=== PATIENT | female | born 1940 | race Caucasian/White ===

== ENCOUNTER 2022-02-28 09:35 | Outpatient (CLI) | payer MEDICARE ==
[2022-02-28] MEDS ORDERED: Iopamidol 300 61% 100 ML VIAL FS ONE (12:16)
== END 2022-02-28 09:36 | disposition home or self-care (01) ==
LOC: CSHCT 09:35
PROVIDERS: ATTEND Family Medicine
DX: N39.0 Urinary tract infection, site not specified (principal); K76.9 Liver disease, unspecified; Z90.710 Acquired absence of both cervix and uterus; N28.9 Disorder of kidney and ureter, unspecified; I70.90 Unspecified atherosclerosis
CPT/HCPCS: 74177

== ENCOUNTER 2023-06-29 12:25 | Outpatient (CLI) | payer MEDICARE ==
[~2023-06-29 12:25] MED LIST: Magnevist 469MG/ML 20 ML VIAL ONE
== END 2023-06-29 12:26 | disposition home or self-care (01) ==
LOC: CSHMRI 12:25
PROVIDERS: ATTEND Otolaryngology Plastic Surgery within the Head & Neck
DX: J32.1 Chronic frontal sinusitis (principal); Q34.8 Other specified congenital malformations of respiratory system; H05.20 Unspecified exophthalmos
CPT/HCPCS: 70553; 82565

== ENCOUNTER 2024-08-12 13:18 | Outpatient (CLI) | payer MEDICARE | END 2024-08-12 13:19 | disposition home or self-care (01) | LOC: CSHULT 13:18 | PROVIDERS: ATTEND Family Medicine | DX: R01.1 Cardiac murmur, unspecified (principal); I35.0 Nonrheumatic aortic (valve) stenosis | CPT/HCPCS: 93306 ==

== ENCOUNTER 2025-08-25 08:45 | Outpatient (CLI) | payer MEDICARE ==
[2025-08-25] MEDS ORDERED: Iopamidol 370 76% 100 ML VIAL ONE (14:01)
== END 2025-08-25 08:46 | disposition home or self-care (01) ==
LOC: CSHCT 08:45
PROVIDERS: ATTEND Nurse Practitioner Family
DX: I73.9 Peripheral vascular disease, unspecified (principal); I70.1 Atherosclerosis of renal artery; K62.9 Disease of anus and rectum, unspecified; K22.9 Disease of esophagus, unspecified
CPT/HCPCS: 75635; Q9967